=== PATIENT | female | born 1960 ===

== ENCOUNTER 2018-03-27 07:22 | Day surgery (SDC) | payer MEDICAID ==
[2018-03-27] MEDS ORDERED: Propofol 10 mg/ml Inj (20 ML) ONE (10:17)
[2018-03-27] MEDS ORDERED: Lactated Ringer's 1,000 ML IV ONE (10:18)
[2018-03-27 11:09] VITALS: TEMP 96.6
[2018-03-27 11:59] VITALS: BP 118/58; PULSE 53; RESP 19; O2SAT 99
== END 2018-03-27 11:55 | disposition home or self-care (01) ==
LOC: C.ENDO 07:22
PROVIDERS: ATTEND Internal Medicine Gastroenterology
DX: Z12.11 Encounter for screening for malignant neoplasm of colon (principal); K63.5 Polyp of colon; D12.0 Benign neoplasm of cecum; K64.1 Second degree hemorrhoids; E66.9 Obesity, unspecified; Z68.34 Body mass index [BMI] 34.0-34.9, adult; Z79.899 Other long term (current) drug therapy; F17.210 Nicotine dependence, cigarettes, uncomplicated
CPT/HCPCS: 45380; 45385; 88305; J2704; J7120